=== PATIENT | female | born 1940 | race Two or more races ===

== ENCOUNTER 2018-06-29 17:12 | Emergency (ER) | payer MEDICARE ==
[~2018-06-29] VITALS: Ht 162.6 cm; Wt 50.0 kg
[2018-06-29] MEDS ORDERED: IBUPROFEN 400MG TABLET PO ONE (23:30)
[2018-06-30 00:44] VITALS: BP 145/57
== END 2018-06-30 01:19 | disposition home or self-care (01) ==
LOC: ER 17:12
DX: S52.592A Other fractures of lower end of left radius, initial encounter for closed fracture (principal); R03.0 Elevated blood-pressure reading, without diagnosis of hypertension; Z98.890 Other specified postprocedural states; W01.0XXA Fall on same level from slipping, tripping and stumbling without subsequent striking against object, initial encounter; Y93.89 Activity, other specified; Y92.480 Sidewalk as the place of occurrence of the external cause
CPT/HCPCS: 29125; 73110; 99284

== ENCOUNTER 2020-01-23 15:33 | Emergency (ER) | payer MEDICARE ==
[~2020-01-23] VITALS: Ht 152.4 cm; Wt 52.0 kg
[2020-01-23] MEDS ORDERED: FUROSEMIDE 40MG/4ML VIAL IV ONE (16:45)
[2020-01-23] MEDS ORDERED: NITROGLYCERIN OINT 1GM/INCH UDPKT TD ONE (16:45)
[2020-01-23] MEDS ORDERED: ASPIRIN 81MG TABLET PO ONE (16:45)
[2020-01-23 16:56] LABS: BASOPHILS % 3.5 % (0.0-2.0); HEMATOCRIT. 28.9 % (36.0-48.0); HEMOGLOBIN. 8.6 g/dL (12.0-16.0); LYMPHOCYTES % 32.7 % (20.0-50.0); MEAN CORPUSCULAR HEMOGLOBIN 18.2 pg (28.0-32.0); MEAN CORPUSCULAR VOLUME 60.7 fL (81.0-99.0); MEAN PLATELET VOLUME 8.8 fl (7.4-10.4); MONOCYTES % 8.8 % (2.0-8.0); PLATELET 347 x1000/uL (130-400); RED BLOOD CELL COUNT 4.76 mill/uL (4.2-5.4); RED CELL DISTRIBUTION WIDTH 19.7 % (11.6-14.6)
[2020-01-23 17:01] LABS: CHLORIDE 110 mEq/L (98-107)
[2020-01-23 18:24] LABS: PLATELET ESTIMATE NORMAL
[2020-01-23 20:30] VITALS: BP 153/50
== END 2020-01-23 20:59 | disposition short-term general hospital (02) ==
LOC: ER 15:33
DX: I11.0 Hypertensive heart disease with heart failure (principal); I50.9 Heart failure, unspecified; Z88.5 Allergy status to narcotic agent; Z88.6 Allergy status to analgesic agent
CPT/HCPCS: 36415; 71045; 80053; 83880; 84484; 85025; 93005; 96374; 99285; J1940

== ENCOUNTER 2021-01-12 10:33 | Emergency (ER) | payer MEDICARE ==
[~2021-01-12] VITALS: Ht 152.4 cm; Wt 41.0 kg
[2021-01-12] MEDS ORDERED: HYDRALAZINE HCL 100MG TABLET PO ONE (11:15)
[2021-01-12] MEDS ORDERED: ACETAMINOPHEN 325MG TABLET PO ONE (11:15)
[2021-01-12] MEDS ORDERED: FUROSEMIDE 20MG TABLET PO ONE (11:15)
[2021-01-12 13:00] VITALS: BP 173/78
== END 2021-01-12 14:08 | disposition home or self-care (01) ==
LOC: ER 10:33
DX: S00.83XA Contusion of other part of head, initial encounter (principal); M25.551 Pain in right hip; I11.0 Hypertensive heart disease with heart failure; I50.9 Heart failure, unspecified; R26.9 Unspecified abnormalities of gait and mobility; W01.0XXA Fall on same level from slipping, tripping and stumbling without subsequent striking against object, initial encounter; Y93.01 Activity, walking, marching and hiking; Y92.9 Unspecified place or not applicable; Z88.6 Allergy status to analgesic agent; Z98.890 Other specified postprocedural states
CPT/HCPCS: 73502; 73552; 93005; 99284